=== PATIENT | male | born 2000 | race African-American/Black ===

== ENCOUNTER 2019-10-29 13:04 | Emergency (ER) | payer OTHER ==
[2019-10-29] MEDS ORDERED: ACETAMINOPHEN 325 MG TAB ONE (13:27)
== END 2019-10-29 14:40 | disposition home or self-care (01) ==
LOC: EDH 13:04
DX: S33.5XXA Sprain of ligaments of lumbar spine, initial encounter (principal); W18.39XA Other fall on same level, initial encounter; Y93.39 Activity, other involving climbing, rappelling and jumping off; Y92.89 Other specified places as the place of occurrence of the external cause; Y99.8 Other external cause status
CPT/HCPCS: 72100

== ENCOUNTER 2020-01-03 15:58 | Emergency (ER) | payer OTHER ==
[2020-01-03] MEDS ORDERED: IBUPROFEN 600 MG TABLET ONE (16:23)
== END 2020-01-03 17:19 | disposition home or self-care (01) ==
LOC: EDH 15:58
DX: S83.90XA Sprain of unspecified site of unspecified knee, initial encounter (principal); X58.XXXA Exposure to other specified factors, initial encounter; Y93.67 Activity, basketball; Y92.39 Other specified sports and athletic area as the place of occurrence of the external cause; Y99.8 Other external cause status
CPT/HCPCS: 73590